=== PATIENT | female | born 2005 | race Caucasian/White ===

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

== ENCOUNTER → 2024-02-15 14:19 | Outpatient (BNVA) | payer SELFPAY | PROVIDERS: PCP Family Medicine; Visit Provider Registered Nurse Neonatal Intensive Care | DX: R19.7 Diarrhea, unspecified (principal) | CPT/HCPCS: 87426 ==

== ENCOUNTER 2024-02-21 19:25 | Emergency (ER) | payer SELFPAY ==
[2024-02-21 19:36] VITALS: BP 118/72; PULSE 98; RESP 14; TEMP 36.6; O2SAT 100
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
[2024-02-21 20:24] VITALS: BP 117/68; PULSE 86; RESP 18; O2SAT 99
== END 2024-02-21 20:16 | disposition home or self-care (01) ==
PROVIDERS: Emergency Provider Physician Assistant; PCP Family Medicine
DX: S50.01XA Contusion of right elbow, initial encounter (principal); S40.012A Contusion of left shoulder, initial encounter; S60.812A Abrasion of left wrist, initial encounter; Z87.891 Personal history of nicotine dependence; V89.2XXA Person injured in unspecified motor-vehicle accident, traffic, initial encounter
CPT/HCPCS: 99281

== ENCOUNTER 2024-12-28 18:41 | Emergency (ER) | payer SELFPAY ==
[2024-12-28 18:41] VITALS: BP 123/75; PULSE 84; RESP 16; TEMP 36.9; O2SAT 99; BMI 19.5
[2024-12-28 19:39] LABS: Basophils % 0.3 %; Eosinophils # 0.3 10^3/uL (0.0-0.8); Eosinophils % 3.5 %; Lymphocytes # 2.5 10^3/uL (1.5-6.5); Lymphocytes % 26.6 %; Mean Corpuscular Volume 87.3 fl (85-98); Mean Platelet Volume 10.9 fL (7.4-10.4); Monocytes # 0.7 10^3/uL (0.2-0.9); Monocytes % 7.7 %; Neutrophils # 5.86 10^3/uL (1.8-8.0); Neutrophils % 61.7 %; Nucleated Red Blood Cells % 0 %; Platelet Count 209 10^3/cmm (157-399); Red Blood Count 5.04 10^6/uL (3.85-5.65); Red Cell Distribution Width 14.6 % (12.1-15.1); White Blood Count 9.49 10^3/uL (4.5-13.0)
[2024-12-28 19:53] VITALS: BP 121/79; PULSE 76; RESP 16; O2SAT 95
[2024-12-28 20:04] LABS: Bilirubin Urine Negative (Negative); Blood Urine 2+ (Negative); Glucose Urine UA Negative (Normal); Ketones Urine Negative (Negative); Leukocyte Esterase Urine 3+ (Negative); Nitrate Urine Negative (Negative); Protein Urine Trace (Negative); Specific Gravity, Urine 1.005 (1.005-1.030); Urine Appearance Clear (CLEAR); Urine Color Yellow (Yellow); Urobilinogen Urine 0.2 mg/dL (Negative)
[2024-12-28 20:09] LABS: Bacteria Urine None Seen /hpf; RBC Urine 0-2 /hpf (0-2); Squamous Epithelial Cell Urine 0-5 /hpf (0-5); WBC Urine 51-100 /hpf (0-5)
[2024-12-28 20:11] LABS: Alanine Aminotransferase 14 U/L (0-33); Albumin Level 4.6 g/dL (3.5-5.2); Alkaline Phosphatase 79 U/L (35-105); Anion Gap 16.4 (5-19); Aspartate Amino Transferase 16 U/L (0-32); Blood Urea Nitrogen 8 mg/dL (6-20); Calcium 9.9 mg/dL (8.5-10.5); Carbon Dioxide 25 mmol/L (22-29); Chloride 103 mmol/L (98-107); Glomerular Filtration Rate 127.5 mL/min (90-130); Glucose 88 mg/dL (65-115); Osmolality Calculated 288 mOsm/kg (285-295); Potassium 4.4 mmol/L (3.5-5.1); Sodium 140 mmol/L (136-145); Total Bilirubin 0.3 mg/dL (0.15-1.2); Total Protein 7.6 g/dL (6.6-8.7)
--- NOTE | 2024-12-28 20:24 | ED_ITS ---
HPI - Female Genitourinary 2 General: Chief complaint: Urogenital-Female Stated complaint: pain when urinating, abd pain Time Seen by Provider: 12/28/24 19:52 History of Present Illness: Well-appearing 19-year-old female seen for 2 days of suprapubic pain, frequency, mild dysuria, and now right flank pain which started this morning. She denies fever, nausea, vomiting, and does not think that she is . She is monogamous with a single male partner and has not had any vaginal discharge or concerning features of STI. She has had a similar constellation of symptoms in the past which turned out to be a UTI. She states that she frequently holds her urine and does not go to the bathroom as frequently as she should and she thinks this leads to UTI. She has no allergies to medications and has no other acute complaints. Related Data Previous Rx's ?Medication ?Instructions ?Recorded cephalexin 500 mg capsule 500 mg PO Q6H 10 days #40 ca ps 12/28/24 Allergies Allergy/AdvReac Type Severity Reaction Status Date / Time No Known Allergies Allergy Verified 02/21/24 19:43 PFSH ED 2 PFSH: Medical History History of oppositional defiant disorder History of attention deficit disorder On Concerta until 2015 Family History Other Lung disease Denies family history of Diabetes CAD (coronary artery disease) Clotting disorder Dementia Hyperlipidemia Psychiatric illness Chronic kidney disease (CKD) Suicide Anesthesia complication Bleeding disorder Family history of premature coronary artery disease Cancer Hypertension Stroke Social History Smoking and tobacco/nicotine status: unknown if used tobacco/nicotine Quit status (tobacco/nicotine): has quit using Former quit date comment: patient was a marijuana smoker Alcohol intake: never Substance/Drug Use: former Date of last use: 09/2020- marijuana and edible THC Adopted: No Highest education level completed: 9th Grade Education level details: Patient is currently working toward getting her GED Sexually active: No Physical Exam 2 Const: COMMON NORMALS: no acute distress, patient oriented x3 and alert HENMT: COMMON NORMALS: normocephalic and atraumatic HEAD & SCALP: n ormocephalic and atraumatic Eye: COMMON NORMALS: Equal, round and reactive pupils present, EOMs intact bilaterally and no scleral icterus PUPIL: Yes Equal, round and reactive pupils present Resp: COMMON NORMALS: normal respiratory effort and No retractions Cardio: COMMON NORMALS: regular rate, regular rhythm and No murmurs present (Cardio) RATE: regular rate RHYTHM: regular rhythm GI: OTHER: Very mild suprapubic tenderness as well as mild right flank tenderness to palpation concerning for early pyelonephritis. Neuro: COMMON NORMALS: patient oriented x3 SENSORIUM/ORIENTATION: Yes alert Skin: COMMON NORMALS: no rashes or lesions noted GENERAL SKIN EXAM: no rashes or lesions noted Course 2 Vital Signs: Vital signs: Vital Signs Temperature 98.5 F 12/28/24 18:41 Pulse Rate 76 12/28/24 19:53 Respiratory Rate 16 12/28/24 19:53 Blood Pressure 121/79 12/28/24 19:53 Pulse Oximetry 95 12/28/24 19:53 Oxygen Delivery Me thod Room Air 12/28/24 19:53 MDM - Female Medical Decision Making In summary, patient is a well-appearing 19-year-old female seen for symptoms concerning for early right pyelonephritis. She has no fever and white blood cell count is not elevated. Urinalysis is indicative of infection. hCG is negative. Should be given a course of antibiotics and discharged in stable and improved condition with follow-up primary care as needed. Lab Data 12/28/24 19:27 12/28/24 19:27 Laboratory Results WBC 9.49 10^3/uL (4.5-13.0) 12/28/24 19:27 RBC 5.04 10^6/uL (3.85-5.65) 12/28/24 19:27 Hgb 14.10 g/dL (12.4-14.8) 12/28/24 19:27 Hct 44.0 % (36-47) 12/28/24 19:27 MCV 87.3 fl (85-98) 12/28/24 19:27 MCH 28.0 pg (27-33) 12/28/24 19:27 MCHC 32.0 g/dL (30-55) 12/28/24 19:27 RDW 14.6 % (12.1-15.1) 12/28/24 19:27 Plt Count 209 10^3/cmm (157-399) 12/28/24 19:27 MPV 10.9 fL (7.4-10.4) H 12/28/24 19:27 Neut % (Auto) 61.7 % 12/28/24 19:27 Lymph % (Auto) 26.6 % 12/28/24 19:27 [place] % (Auto) 7.7 % 12/28/24 19:27 Eos % (Auto) 3.5 % 12/28/24 19:27 Baso % (Auto) 0.3 % 12/28/24 19:27 Neut # (Auto) 5.86 10^3/uL (1.8-8.0) 12/28/24 19:27 Lymph # (Auto) 2.5 10^3/uL (1.5-6.5) 12/28/24 19:27 [place] # (Auto) 0.7 10^3/uL (0.2-0.9) 12/28/24 19:27 Eos # (Auto) 0.3 10^3/uL (0.0-0.8) 12/28/24 19:27 Baso # (Auto) 0.0 10^3/uL (0.0-0.1) 12/28/24 19:27 Nucleated RBC % (auto) 0 % 12/28/24 19:27 Nucleated RBCs # 0.0 /100WBC 12/28/24 19:27 Sodium 140 mmol/L (136-145) 12/28/24 19:27 Potassium 4.4 mmol/L (3.5-5.1) 12/28/24 19:27 Chloride 103 mmol/L (98-107) 12/28/24 19:27 Carbon Dioxide 25 mmol/L (22-29) 12/28/24 19:27 Anion Gap 16.4 (5-19) 12/28/24 19:27 BUN 8 mg/dL (6-20) 12/28/24 19:27 Creatinine 0.6 mg/dL (0.5-0.9) 12/28/24 19:27 GFR Calculation 127.5 mL/min (90-130) 12/28/24 19:27 Glucose 88 mg/dL (65-115) 12/28/24 19:27 Calculated Osmolality 288 mOsm/kg (285-295) 12/28/24 19: Calcium 9.9 mg/dL (8.5-10.5) 12/28/24 19: Total Bilirubin 0.3 mg/dL (0.15-1.2) 12/28/24 19:27 AST 16 U/L (0-32) 12/28/24 19: ALT 14 U/L (0-33) 12/28/24 19: Alkaline Phosphatase 79 U/L (35-105) 12/28/24 19: Total Protein 7.6 g/dL (6.6-8.7) 12/28/24 19: Albumin 4.6 g/dL (3.5-5.2) 12/28/24 19: Globulin 3.0 g/dL (1.3-4.6) 12/28/24 19:27 HCG, Qual Negative (Negative) 12/28/24 19: Urine Color Yellow (Yellow) 12/28/24: Urine Appearance Clear (CLEAR) 12/28/24 19: Urine pH 7.0 (5-7) 12/28/24: Ur Specific [place] 1.005 (1.005-1.030) 12/28/24: Urine Protein Trace (Negative) A 12/28/24: Urine Glucose (UA) Negative (Normal) 12/28/24 19: Urine Ketones Negative (Negative) 12/28/24 19: Urine Blood 2+ (Negative) A 12/28/24 19: Urine Nitrate Negative (Negative) 12/28/24 19: Urine Bilirubin Negative (Negative) 12/28/24 19: Urine Urobilinogen 0.2 mg/dL (Negative) 12/28/24 19: Ur Leukocyte Esterase 3+ (Negative) A 12/28/24 19: Urine RBC 0-2 /hpf (0-2) 12/28/24 19: Urine WBC 51-100 /hpf (0-5) H 12/28/24 19:27 Ur Squamous Epith Cells 0-5 /hpf (0-5) 12/28/24 19: Amorphous Sediment Not Reportable 12/28/24 19: Urine Bacteria None seen /hpf (NONE) 12/28/24 19:27 Hyaline Casts 0.40 /lpf 12/28/24 19:27 No radiology studies performed this visit Discharge Plan Discharge Patient Disposition: Home Clinical Impression: Pyelonephritis Condition: Stable Prescriptions: New cephalexin 500 mg capsule 500 mg PO Q6H 10 Days Qty: 40 0RF Discharge Orders: Discharge ED (Routine); Ordered 12/28/24 Ordered By: Wilton Blevins Referrals: Irma Harrison DO [Primary Care Provider, Family Practice] Discharge Diet: Usual diet Discharge Activity: Increase activity as tolerated Patient Instructions: Pyelonephritis Print Language: Macedonian Coding Level of Care Code ED Pick Out Hand for Nelly Billings
[2024-12-28 20:30] LABS: Add Urine Culture? Yes
[2024-12-28 20:35] LABS: HCG Qualitative Urine. Negative (Negative)
[2024-12-28] MEDS: cephALEXin 500 mg Capsule PO (21:04)
[2024-12-28 21:09] VITALS: BP 96/81; PULSE 76; RESP 16; O2SAT 98
== END 2024-12-28 21:11 | disposition home or self-care (01) ==
PROVIDERS: Emergency Provider Student in an Organized Health Care Education/Training Program; PCP Family Medicine
DX: N12 Tubulo-interstitial nephritis, not specified as acute or chronic (principal); Z87.891 Personal history of nicotine dependence
CPT/HCPCS: 36415; 80053; 81001; 81025; 85025; 87077; 87086; 87186; 99283; J9999